=== PATIENT | female | born 1995 | race Caucasian/White ===

== ENCOUNTER 2025-07-05 16:32 | Emergency (ER) | payer SELFPAY ==
[~2025-07-05] VITALS: Ht 152.4 cm; Wt 50.0 kg
[2025-07-05 16:44] VITALS: O2SAT 99
[2025-07-05] MEDS: LIDOCAINE HCL/EPINEPHRINE 1%-EPI 1:100,000 20ML VIAL INFIL ONE (20:45)
[2025-07-05] MEDS ORDERED: CEPH500T MT (22:08)
[2025-07-05 22:28] VITALS: BP 114/71; PULSE 74; RESP 16; TEMP 36.8; O2SAT 98
== END 2025-07-05 22:33 | disposition home or self-care (01) ==
LOC: ER 16:32
DX: S01.01XA Laceration without foreign body of scalp, initial encounter (principal); R51.9 Headache, unspecified; W01.10XA Fall on same level from slipping, tripping and stumbling with subsequent striking against unspecified object, initial encounter; Y93.89 Activity, other specified; Y92.89 Other specified places as the place of occurrence of the external cause; Y99.9 Unspecified external cause status
CPT/HCPCS: 70450; 12001; 99284; Z7610